=== PATIENT | male | born 1970 | race Caucasian/White ===

== ENCOUNTER → 2016-12-14 | Outpatient (CLI) | payer OTHER ==
[~2016-12-14] MED LIST: ATIVAN1 MG PO; NO HOME MEDICATIONS
== END ==
LOC: BHSO 15:41
DX: F41.1 Generalized anxiety disorder (principal)

== ENCOUNTER → 2017-08-09 | Outpatient (CLI) | payer OTHER | LOC: BHSO 14:42 | DX: F41.1 Generalized anxiety disorder (principal) ==

== ENCOUNTER → 2018-03-07 | Outpatient (CLI) | payer BC | LOC: BHSO 15:03 | DX: F41.1 Generalized anxiety disorder (principal) | CPT/HCPCS: G0463 ==

== ENCOUNTER → 2018-06-12 | Outpatient (CLI) | payer BC | LOC: BHSO 15:46 | DX: F33.42 Major depressive disorder, recurrent, in full remission (principal) | CPT/HCPCS: G0463 ==

== ENCOUNTER → 2018-12-18 | Outpatient (CLI) | payer BC | LOC: BHSO 15:44 | DX: F33.42 Major depressive disorder, recurrent, in full remission (principal) | CPT/HCPCS: G0463 ==

== ENCOUNTER → 2019-10-05 | Outpatient (CLI) | payer BC | LOC: BHSO 15:37 | DX: F33.42 Major depressive disorder, recurrent, in full remission (principal) | CPT/HCPCS: G0463 ==

== ENCOUNTER 2020-01-08 10:39 | Day surgery (SDC) | payer BC ==
[~2020-01-08] VITALS: Ht 200.7 cm; Wt 129.2 kg
[2020-01-08 11:05] VITALS: BP 134/90; PULSE 101; TEMP 97.8
[2020-01-08] MEDS ORDERED: VIIBRYD40 MG PO (11:15)
[2020-01-08] MEDS ORDERED: SEROQUEL300 MG PO (11:15)
[2020-01-08] MEDS ORDERED: ADVIL200 MG PO (11:16)
[2020-01-08] MEDS ORDERED: ATARAX50 MG PO (11:16)
[2020-01-08] MEDS ORDERED: ALEVE 220MG220 MG PO (11:17)
--- NOTE | 2020-01-08 11:18 | NUR ---
TO RM AT 1045- CALL LIGHT IN REACH AT BEDSIDE
[2020-01-08 12:47] VITALS: BP 110/79; PULSE 90; TEMP 97.8
--- NOTE | 2020-01-08 12:47 | NUR ---
TO RM 6 PER CART FROM ENDOSCOPY. AMBULATED TO RECLINER WITH ASSIST. AWAKE AND TALKING TO AND STAFF. RECEIVED WATER, DENIED ANYTHING TO EAT AT THIS TIME.
[2020-01-08 13:00] VITALS: BP 117/84; PULSE 89
--- NOTE | 2020-01-08 13:00 | NUR ---
Pt sitting comfortably in chair, and he states he is ready to go eat at [facility]. Educated pt on going slow with heavy foods and to start eating palliative care nurse practitioner carby meal to avoid nausea/diarrhea. Pt agrees and expresses understanding. VSS and WNL, and he states that he is ready to go home. Pt meets criteria for discharge, and Dr. at pt's bedside reviewing procedure with pt and . Pt has no further concerns/questions and expresses understanding. Reviewed discharge information with pt including when to call dr or go to ED. Pt agrees and expresses understanding.
--- NOTE | 2020-01-08 13:10 | NUR ---
RECEIVED DISCHARGE INSTRUCTIONS AND VERBALIZED UNDERSTANDING DISCONTINUED IV AND INT- CATHETER INTACT.
--- NOTE | 2020-01-08 13:18 | NUR ---
DISCHARGED PER WC BY NURSING STAFF TO PRIVATE CAR IN CARE OF - [facility]
[2020-01-08 13:32] VITALS: BP 110/79; PULSE 94
== END 2020-01-08 13:22 | disposition home or self-care (01) ==
LOC: SDCO 10:39
DX: Z12.11 Encounter for screening for malignant neoplasm of colon (principal); D12.3 Benign neoplasm of transverse colon; D12.8 Benign neoplasm of rectum; Z88.0 Allergy status to penicillin; F41.9 Anxiety disorder, unspecified; F32.9 Major depressive disorder, single episode, unspecified; M19.90 Unspecified osteoarthritis, unspecified site
CPT/HCPCS: J2704; J7030

== ENCOUNTER → 2020-04-07 | Outpatient (CLI) | payer BC ==
[~2020-04-07] MED LIST changes: +ADVIL200 MG PO; +ALEVE 220MG220 MG PO; +ATARAX50 MG PO; +SEROQUEL300 MG PO; +VIIBRYD40 MG PO
== END ==
LOC: BHSO 15:50
DX: F33.42 Major depressive disorder, recurrent, in full remission (principal)
CPT/HCPCS: G0463